=== PATIENT | female | born 1995 | race Two or more races ===

== ENCOUNTER 2021-02-14 16:24 | Emergency (ER) | payer MEDICAID, OTHER ==
[~2021-02-14] VITALS: Ht 175.3 cm; Wt 109.0 kg
[2021-02-14] MEDS ORDERED: ACETAMINOPHEN 325MG TABLET PO ONE (16:45)
[2021-02-14 17:28] LABS: BASOPHILS % 0.2 % (0.0-2.0); EOSINOPHILS % 0.2 % (0.0-5.0); HEMATOCRIT. 32.1 % (36.0-48.0); HEMOGLOBIN. 10.4 g/dL (12.0-16.0); LYMPHOCYTES % 10.6 % (20.0-50.0); MEAN CORPUSCULAR HEMOGLOBIN 20.5 pg (28.0-32.0); MEAN CORPUSCULAR VOLUME 63.6 fL (81.0-99.0); MEAN PLATELET VOLUME 7.2 fl (7.4-10.4); MONOCYTES % 4.7 % (2.0-8.0); NEUTROPHILS % 84.3 % (40.0-76.0); PLATELET 369 x1000/uL (130-400); RED BLOOD CELL COUNT 5.05 mill/uL (4.2-5.4); RED CELL DISTRIBUTION WIDTH 18.9 % (11.6-14.6)
[2021-02-14 17:41] LABS: CHLORIDE 106 mEq/L (98-107)
[2021-02-14 17:48] LABS: PLATELET ESTIMATE NORMAL
[2021-02-14 18:04] LABS: B-HCG QUANTITATIVE 38185 mIU/mL (<3)
[2021-02-14 20:05] LABS: CLARITY URINE CLEAR (CLEAR); COLOR URINE YELLOW (YELLOW); KETONES URINE 2+ (NEGATIVE); LEUKOCYTE ESTERASE URINE NEGATIVE (NEGATIVE); NITRITE URINE NEGATIVE (NEGATIVE); OCCULT BLOOD URINE NEGATIVE (NEGATIVE); PH URINE 5.5 (4.5-8.0); PROTEIN URINE TRACE (NEGATIVE); SPECIFIC GRAVITY URINE 1.026 (1.005-1.030)
[2021-02-14 21:05] VITALS: BP 123/86
== END 2021-02-14 21:05 | disposition home or self-care (01) ==
LOC: ER 16:24
DX: O26.892 Other specified pregnancy related conditions, second trimester (principal); R10.9 Unspecified abdominal pain; Z3A.14 14 weeks gestation of pregnancy
CPT/HCPCS: 36415; 76801; 80053; 81003; 81025; 84702; 85025; 99284

== ENCOUNTER 2021-07-09 16:23 | Observation (INO) | payer MEDICAID, OTHER ==
[~2021-07-09] VITALS: Ht 177.8 cm; Wt 113.4 kg
== END 2021-07-09 18:45 | disposition home or self-care (01) ==
LOC: 8 EST LDRP 16:23
PROVIDERS: ADMIT Obstetrics & Gynecology; ATTEND Obstetrics & Gynecology
DX: O26.893 Other specified pregnancy related conditions, third trimester (principal); R10.9 Unspecified abdominal pain; O62.9 Abnormality of forces of labor, unspecified; Z3A.33 33 weeks gestation of pregnancy
CPT/HCPCS: 76805; 76818; 99281; G0378; 59025

== ENCOUNTER 2021-08-07 11:03 | Observation (INO) | payer MEDICAID, OTHER ==
[~2021-08-07] VITALS: Ht 175.3 cm; Wt 115.2 kg
[2021-08-07 12:34] LABS: BASOPHILS % 0.5 % (0.0-2.0); EOSINOPHILS % 0.7 % (0.0-5.0); HEMOGLOBIN. 8.3 g/dL (12.0-16.0); LYMPHOCYTES % 12.7 % (20.0-50.0); MEAN CORPUSCULAR HEMOGLOBIN 18.2 pg (28.0-32.0); MEAN CORPUSCULAR VOLUME 59.5 fL (81.0-99.0); MEAN PLATELET VOLUME 8.5 fl (7.4-10.4); NEUTROPHILS % 82.1 % (40.0-76.0); PLATELET 304 x1000/uL (130-400); RED BLOOD CELL COUNT 4.53 mill/uL (4.2-5.4); RED CELL DISTRIBUTION WIDTH 17.4 % (11.6-14.6)
[2021-08-07 12:40] LABS: CLARITY URINE CLEAR (CLEAR); COLOR URINE YELLOW (YELLOW); KETONES URINE TRACE (NEGATIVE); LEUKOCYTE ESTERASE URINE NEGATIVE (NEGATIVE); NITRITE URINE NEGATIVE (NEGATIVE); OCCULT BLOOD URINE NEGATIVE (NEGATIVE); PROTEIN URINE 2+ (NEGATIVE); SPECIFIC GRAVITY URINE 1.025 (1.005-1.030); UROBILINOGEN URINE 0.2 E.U./dL (0.2-1.0)
[2021-08-07 12:46] LABS: CHLORIDE 108 mEq/L (98-107)
[2021-08-07 12:48] LABS: D-DIMER 0.83 mg/L FEU (<0.50); INR 0.9; PROTHROMBIN TIME 9.8 sec (9.6-11.0)
[2021-08-07 13:06] LABS: PLATELET ESTIMATE NORMAL
== END 2021-08-07 15:15 | disposition home or self-care (01) ==
LOC: 8 EST LDRP 11:03
PROVIDERS: ADMIT Obstetrics & Gynecology; ATTEND Obstetrics & Gynecology
DX: O26.893 Other specified pregnancy related conditions, third trimester (principal); R03.0 Elevated blood-pressure reading, without diagnosis of hypertension; Z3A.37 37 weeks gestation of pregnancy; Z79.899 Other long term (current) drug therapy
CPT/HCPCS: 36415; 59025; 76805; 76818; 80053; 81003; 84550; 85025; 85379; 85384; 85610; 85730; G0378; 99281

== ENCOUNTER 2021-08-27 02:49 | Inpatient (IN) | payer OTHER ==
[~2021-08-27] VITALS: Ht 175.3 cm; Wt 113.4 kg
[2021-08-27] MEDS ORDERED: PREN1TAB78 PO (04:19)
[2021-08-27] MEDS ORDERED: PENICILLIN G POTASSIUM 5 MMU in DEXT 5% WATER 100 ML IV SCH (05:30)
[2021-08-27] MEDS ORDERED: BUTORPHANOL TARTRATE 2 MG/ML VIAL IV PRN (05:30)
[2021-08-27] MEDS ORDERED: METHYLERGONOVINE MALEATE 0.2 MG/ML IM PRN ×2 (05:30→14:45)
[2021-08-27] MEDS ORDERED: NALOXONE HCL 0.4 MG/ML 1ML VIAL IM PRN (05:30)
[2021-08-27] MEDS ORDERED: LIDOCAINE HCL 1% 20ML VIAL (Pyxis) INJ INFIL SCH (05:30)
[2021-08-27] MEDS ORDERED: MAGNESIUM 4 G PREMIX 100 ML IV NR (05:45)
[2021-08-27] MEDS: LACTATED RINGERS 1,000 ML IV SCH ×2 (06:11→18:17)
[2021-08-27] MEDS: MAGNESIUM 20 G PREMIX (L & D) 500 ML IV SCH ×2 (06:34→14:54)
[2021-08-27 06:49] LABS: BASOPHILS % 0.5 % (0.0-2.0); EOSINOPHILS % 0.1 % (0.0-5.0); HEMOGLOBIN. 9.3 g/dL (12.0-16.0); LYMPHOCYTES % 7.8 % (20.0-50.0); MEAN CORPUSCULAR VOLUME 59.7 fL (81.0-99.0); MEAN PLATELET VOLUME 8.8 fl (7.4-10.4); MONOCYTES % 2.6 % (2.0-8.0); PLATELET 337 x1000/uL (130-400); RED BLOOD CELL COUNT 5.19 mill/uL (4.2-5.4); RED CELL DISTRIBUTION WIDTH 19.2 % (11.6-14.6)
[2021-08-27 06:54] LABS: CHLORIDE 102 mEq/L (98-107); INR 0.9; PARTIAL THROMBOPLASTIN TIME 24.2 sec (23.4-31.0); PROTHROMBIN TIME 9.8 sec (9.6-11.0)
[2021-08-27 06:59] LABS: CLARITY URINE CLEAR (CLEAR); COLOR URINE YELLOW (YELLOW); KETONES URINE TRACE (NEGATIVE); LEUKOCYTE ESTERASE URINE NEGATIVE (NEGATIVE); NITRITE URINE NEGATIVE (NEGATIVE); OCCULT BLOOD URINE NEGATIVE (NEGATIVE); PROTEIN URINE 3+ (NEGATIVE); SPECIFIC GRAVITY URINE 1.029 (1.005-1.030)
[2021-08-27] MEDS ORDERED: LABETALOL HCL 5MG/ML VIAL 20ML IV PRN ×3 (07:00)
[2021-08-27] MEDS ORDERED: HYDRALAZINE 20MG/ML VIAL IV PRN (07:00)
[2021-08-27 07:14] LABS: *AMPHETAMINES SCREEN URINE NEGATIVE (NEGATIVE); *BARBITURATES SCREEN URINE NEGATIVE (NEGATIVE); *BENZODIAZEPINES SCREEN URINE NEGATIVE (NEGATIVE); *COCAINE SCREEN URINE NEGATIVE (NEGATIVE); CANNABINOID URINE SCREEN NEGATIVE (NEGATIVE); METHADONE URINE SCREEN NEGATIVE (NEGATIVE); OPIATES URINE SCREEN NEGATIVE (NEGATIVE); PHENCYCLIDINE URINE SCREEN NEGATIVE (NEGATIVE)
[2021-08-27 07:38] LABS: HEPATITIS B SURFACE ANTIGEN NEGATIVE
[2021-08-27] MEDS: OXYTOCIN 30 UNITS/500ML NS PMX 500 ML IV SCH ×2 (09:27→11:28)
[2021-08-27] MEDS ORDERED: MAGNESIUM 20 G PREMIX (L & D) 500 ML IV SCH ×2 (10:30→14:45)
[2021-08-27] MEDS ORDERED: ACETAMINOPHEN 500MG TABLET PO PRN (14:45)
[2021-08-27] MEDS ORDERED: BENZOCAINE/LANOLIN/ALOE VERA SPRAY TOP PRN (14:45)
[2021-08-27] MEDS ORDERED: GLYCERIN/WITCH HAZEL LEAF MEDICATED PAD TOP PRN (14:45)
[2021-08-27] MEDS ORDERED: IBUPROFEN 400MG TABLET PO PRN (14:45)
[2021-08-27] MEDS ORDERED: LABETALOL HCL 100MG TABLET PO NR (15:32)
[2021-08-27] MEDS: LABETALOL HCL 100MG TABLET PO SCH (21:30)
[2021-08-28] MEDS: MAGNESIUM 20 G PREMIX (L & D) 500 ML IV SCH (01:29)
[2021-08-28 01:33] VITALS: BP 145/82
[2021-08-28] MEDS: LACTATED RINGERS 1,000 ML IV SCH (08:04)
[2021-08-28] MEDS ORDERED: TETANUS, DIPHTHERIA, PERTUSSIS VAC/PF 0.5ML (>10YR OLD) IM ONE (08:30)
[2021-08-28] MEDS ORDERED: MAGNESIUM SULFATE 1GM/2ML VIAL IM ONE (09:00)
[2021-08-28 09:32] VITALS: BP 131/78
[2021-08-28] MEDS: LABETALOL HCL 100MG TABLET PO SCH ×2 (09:52→21:02)
[2021-08-28 10:18] LABS: BASOPHILS % 0.3 % (0.0-2.0); EOSINOPHILS % 0.2 % (0.0-5.0); HEMATOCRIT. 26.5 % (36.0-48.0); LYMPHOCYTES % 11.8 % (20.0-50.0); MEAN CORPUSCULAR VOLUME 59.4 fL (81.0-99.0); MEAN PLATELET VOLUME 8.5 fl (7.4-10.4); MONOCYTES % 4.6 % (2.0-8.0); NEUTROPHILS % 83.1 % (40.0-76.0); PLATELET 339 x1000/uL (130-400); RED BLOOD CELL COUNT 4.45 mill/uL (4.2-5.4); RED CELL DISTRIBUTION WIDTH 18.8 % (11.6-14.6)
[2021-08-28 13:00] VITALS: BP 152/83
[2021-08-28 13:25] LABS: PLATELET ESTIMATE NORMAL
[2021-08-28 16:30] VITALS: BP 166/87
[2021-08-28 20:00] VITALS: BP 156/82
[2021-08-28] MEDS: IBUPROFEN 800MG TABLET PO PRN (21:02)
[2021-08-29 04:00] VITALS: BP 146/70
[2021-08-29 08:00] VITALS: BP 153/84
[2021-08-29] MEDS: LABETALOL HCL 100MG TABLET PO SCH (09:04)
[2021-08-29 09:05] VITALS: BP 153/84
[2021-08-29] MEDS: IBUPROFEN 800MG TABLET PO PRN (09:05)
[2021-08-29] MEDS ORDERED: LABE100T5 MT (09:40)
== END 2021-08-29 11:45 | disposition home or self-care (01) | DRG 560 ==
LOC: OBSVTOIN 02:49 → 8 EST LDRP 02:49 → 8EST 08-28 09:12
PROVIDERS: ADMIT Obstetrics & Gynecology; ATTEND Obstetrics & Gynecology
PROC: 10E0XZZ Delivery of Products of Conception, External Approach (ICD-10-PCS; principal; 2021-08-27)
PROC: 0HQ9XZZ Repair Perineum Skin, External Approach (ICD-10-PCS; 2021-08-27)
PROC: 3E0R3BZ Introduction of Anesthetic Agent into Spinal Canal, Percutaneous Approach (ICD-10-PCS; 2021-08-27)
PROC: 00HU33Z Insertion of Infusion Device into Spinal Canal, Percutaneous Approach (ICD-10-PCS; 2021-08-27)
DX: O13.4 Gestational [pregnancy-induced] hypertension without significant proteinuria, complicating childbirth (principal); Z37.0 Single live birth; D64.9 Anemia, unspecified; O48.0 Post-term pregnancy; O99.02 Anemia complicating childbirth; O99.214 Obesity complicating childbirth; Z20.822 Contact with and (suspected) exposure to COVID-19; O70.0 First degree perineal laceration during delivery; Z3A.40 40 weeks gestation of pregnancy
CPT/HCPCS: 36415; 80053; 80305; 81003; 83735; 84550; 85025; 85379; 85384; 86592; 86703; 86762; 86850; 86900; 87340; 87426; 90715; 99281; J0595; J2540; J3475; J3490; J7060; J7120; A4315; J2590